=== PATIENT | female | born 2000 | race Caucasian/White ===

== ENCOUNTER 2023-06-30 17:39 | Emergency (ER) | payer OTHER ==
[~2023-06-30] VITALS: Ht 175.3 cm; Wt 127.0 kg
[2023-06-30 17:59] LABS: BILIRUBIN, URINE NEGATIVE (negative); BLOOD/HGB, URINE LARGE (Negative); KETONE, URINE NEGATIVE (Negative); LEUK ESTERASE, URINE NEGATIVE (negative); NITRITE, URINE NEGATIVE (negative); PH, URINE 5.5 (5-7)
[2023-06-30 18:06] LABS: RED BLOOD CELLS, URINE >50 /hpf (0-5)
[2023-06-30 18:07] LABS: EPITHELIAL CELLS, URINE SQUAMOUS 1+ /lpf (0-1+); REFLEX CULTURE, URINE No (No)
[2023-06-30 19:47] LABS: BASOPHILS 0.4 % (0-2); EOSINOPHILS 0.8 % (0-6); HEMATOCRIT 36.7 % (35.0-50.0); HEMOGLOBIN 12.5 g/dL (12.0-18.0); LYMPHOCYTES 25.4 % (24-44); MCH 28.9 (27-36); MCHC 34.1 g/dl (30-36); MCV 84.8 fl (81-99); MONOCYTES 7.1 % (0-12); NEUTROPHILS 66.3 % (39-80); PLATELET COUNT 317 K/uL (140-440); RBC 4.33 M/ul (4.3-5.7)
[2023-06-30 20:14] LABS: ALBUMIN 3.5 g/dL (3.4-5.0); ALBUMIN/GLOBULIN RATIO 0.92 (1.1-2.4); ANION GAP 12.8 (7-21); BILIRUBIN, TOTAL 0.3 ng/dL (0.2-1.0); BUN/CREATININE RATIO 18.07 (6.0-28.6); CALCIUM 8.6 mg/dL (8.5-10.1); CREATININE, SERUM 0.83 mg/dL (0.55-1.02); POTASSIUM 3.8 mmol/L (3.5-5.1); PROTEIN, TOTAL 7.3 g/dL (6.4-8.2)
[2023-06-30 20:42] LABS: ABO A; RH POSITIVE
[2023-06-30 21:55] VITALS: BP 137/96
== END 2023-06-30 21:56 | disposition home or self-care (01) ==
LOC: ED 17:39
PROVIDERS: Emergency Medicine; Internal Medicine
DX: R73.9 Hyperglycemia, unspecified (principal); N92.0 Excessive and frequent menstruation with regular cycle
CPT/HCPCS: 36415; 80053; 81001; 83036; 84703; 85025; 86900; 86901; 99284; J7121